=== PATIENT | female | born 1950 | race Caucasian/White ===

== ENCOUNTER 2020-08-04 06:32 | Day surgery (SDC) | payer BC ==
--- OUTSIDE RECORDS SUMMARY | 2020-08-04 06:00 | XMS ---
:[address] [facility] Support Name Relationship Address Phone [facility] Unavailable [facility] [place] [phone] [place] [address] [place] [address] KATHI BURRIS [address] [phone] [place] [address] Re-disclosure Warning The records that you are about to access may contain information from federally- assisted alcohol or drug abuse programs. If such information is present, then the following federally mandated warning applies: This information has been disclosed to you from records protected by federal confidentiality rules (42 CFR part 2). The federal rules prohibit you from making any further disclosure of this information unless further disclosure is expressly permitted by the written consent of the person to whom it pertains or as otherwise permitted by 42 CFR part 2. A general authorization for the release of medical or other information is NOT sufficient for this purpose. The Federal rules restrict any use of the information to criminally investigate or prosecute any alcohol or drug abuse patient.The records that you are about to access may contain highly sensitive health information, the redisclosure of which is protected by Article 27-F of the [facility] Public Health law. If you continue you may haveaccess to information: Regarding HIV / AIDS; Provided by facilities licensed or operated by the [facility] Office of Mental Health; or Provided by the [facility] Office for People With Developmental Disabilities. If such information is present, then the following [facility] mandated warning applies: This information has been disclosed to you from confidential records which are protected by state law. State law prohibits you from making any further disclosure of this information without the specific written consent of the person to whom it pertains, or as otherwise permitted by law. Any unauthorized further disclosure in violation of state law may result in a fine or prison sentence or both. A general authorization for the release of medical or other information is NOT sufficient authorization for further disclosure. Insurance Providers Payer name Policy type Policy ID Covered Covered libertarian's Policy P alexia / Coverage libertarian ID relationship to [employer] ormation type sauceda BC PPO [id number] OT [id number] BC PPO [id number] OT [id number] ECHO [id number] HEALTHCARE PPO BC PPO [id number] OT [id number] Results ID Date Data Source [id number] 07/31/2020 08:36:00 AM EDT [facility] Name Value Range Interpretation Description Data Sup porting Code Source(s) Document(s ) SARS [facility] coronavirus 2 RNA This lab was ordered by HANS MANDUJANO and reported by [facility]. ID Date Data Source [id number] 03/17/2020 01:25:00 PM EDT [facility] Name Value Range Interpretation Description Data Sup porting Code Source(s) Document(s ) SARS [facility] CORONAVIRUS 2 RNA This lab was ordered by HANS SUAREZ and reported by [facility]. Procedure
[2020-08-04] MEDS: CELECOXIB 200 MG CAPSULE PO ONE ×2 (06:50→15:57)
[2020-08-04] MEDS ORDERED: BUPIVACAINE HCL/PF 0.5% (5 MG/ML) 30 ML VIAL IJ ONE (06:56)
[2020-08-04] MEDS ORDERED: MIDAZOLAM HCL 2 MG/2 ML SINGLE DOSE VIAL ONE (06:56)
[2020-08-04] MEDS ORDERED: ceFAZolin SODIUM 1 GM VIAL ONE ×2 (07:00→07:06)
[2020-08-04] MEDS ORDERED: PROPOFOL 20 ML ONE ×3 (07:00)
[2020-08-04] MEDS ORDERED: LIDOCAINE HCL/PF 2% SDV 5ML VIAL ONE (07:00)
[2020-08-04] MEDS ORDERED: ePHEDrine SULFATE 50 MG/1 ML AMPULE ONE (07:02)
[2020-08-04 07:04] VITALS: BMI 22.7
[2020-08-04] MEDS ORDERED: SUCCINYLCHOLINE CHLORIDE 200 MG/10 ML SYRINGE ONE ×3 (07:05→08:08)
[2020-08-04] MEDS ORDERED: EPHEDRINE SULFATE/0.9% NACL/PF 50 MG/10 ML SYRINGE NR ONE (07:05)
[2020-08-04] MEDS ORDERED: MAG HYDROX/AL HYDROX/SIMETH 30 ML UNIT-DOSE CUP PO PRN (07:57)
[2020-08-04] MEDS ORDERED: ONDANSETRON 4 MG/2 ML VIAL IVPUSH PRN ×2 (07:57→09:20)
[2020-08-04] MEDS ORDERED: ACETAMINOPHEN INJECTION 100 ML IVPB ONE (07:58)
--- NOTE | 2020-08-04 07:59 | HP ---
Satellite [facility] - Chief Complaint Chief Complaint: right knee pain - Past Medical History Allergies/Adverse Reactions: Allergies Allergy/AdvReac Type Severity Reaction Status Date / Time No Known Drug Allergies Allergy Verified 07/31/20 15:41 Gastrointestinal: Yes: GERD ENT: Yes: Other (hx of throat canecr , s/p surgery and radiation.) - Current Medications Current Medications: Home Medications Medication Instructions Recorded Cholecalciferol (Vitamin D3) 400 unit PO DAILY 01/22/13 [Vitamin D -] Cyanocobalamin [Vitamin B12 -] 100 mcg PO DAILY 01/22/13 Levothyroxine [Synthroid -] 125 mcg PO DAILY 03/17/20 Satellite Physical Exam - Physical Examination Vital Signs: Vital Signs Period Temp Pulse Resp BP Sys/Logan Pulse Ox Last 24 Hr 97.9 F 69 16 115/69 99 General Appearance: Well Nourished, Well Developed, Alert & Oriented x3 ENT: Clear Lung: Normal air movement Extremities: Other (right knee- +swelling, + ttp medially, decr rom, nvi, xrays show grade 4 medial compartment djd) Neurological: Intact, Alert, Oriented Satellite Impression/Plan - Impression/Plan Impression: right knee medial djd Operative Procedure: right medial ruben ukr Date to be Performed: 08/04/20
[2020-08-04] MEDS ORDERED: TRANEXAMIC ACID 1000 MG/10 ML VIAL IVPUSH ONE (08:00)
[2020-08-04] MEDS ORDERED: CEFAZOLIN 2 GM in DEXTROSE 5%-WATER - 50 ML IVPB ONE (08:00)
[2020-08-04] MEDS ORDERED: LACTATED RINGERS SOLUTION 1,000 ML IV SCH (08:00)
[2020-08-04] MEDS ORDERED: TRANEXAMIC ACID 1000 MG/10 ML VIAL ONE (08:32)
[2020-08-04] MEDS ORDERED: BUPIVICAINE 0.25%/MORPH PF/KETOROLAC - 51ML DISP.SYRINGE IA ONE ×3 (09:00→09:22)
--- NOTE | 2020-08-04 09:34 | OP ---
Operative Note - Note: Operative Date: 08/04/20 (zaida) Pre-Operative Diagnosis: right knee medial djd Operation: right medial ruben ukr Post-Operative Diagnosis: Same as Pre-op Surgeon: Keven Major Senior Water/Wastewater Engineer: Yuriy Bob) Anesthesiologist/BAIL BONDSMAN: Elicia Aggarwal Anesthesia: Spinal, Local Specimens Removed: bone fragments Estimated Blood Loss (mls): 50
--- OUTSIDE RECORDS SUMMARY | 2020-08-04 13:23 | XMS ---
:1950 Author Organization [facility] Support Name Relationship Address Phone [facility] Unavailable [facility] [place] [address] [facility] [place] [address] KATHI BURRIS [address] [place] [address] Re-disclosure Warning The records that you are [...] is protected by Article 27-F of the [facility] Public Health law. If you continue you may haveaccess to information: Regarding HIV / AIDS; Provided by facilities licensed or operated by the [facility] Office of Mental Health; or Provided by the [facility] Office for People With Developmental Disabilities. If such information is present, then the following [facility] mandated warning applies: This information has been [...] law may result in a fine or nursing home sentence or both. A general authorization for the release of medical or other information is NOT sufficient authorization for further disclosure. Insurance Providers Payer name Policy type Policy ID Covered Covered libertarian's Policy P alexia / Coverage libertarian ID relationship to [employer] ormation type sauceda BC PPO [id number] OT [id number] BC PPO [id number] OT [id number] [place] [id number] HEALTHCARE PPO BC PPO [id number] OT [id number] Results ID Date Data Source [id number] 07/31/2020 08:36:00 AM EDT [facility] Name Value Range Interpretation Description Data Sup porting Code Source(s) Document(s ) SARS [facility] coronavirus 2 RNA This lab was ordered by HANS MANDUJANO and reported by [facility]. ID Date Data Source [id number] 03/17/2020 01:25:00 PM EDT [facility] Name Value Range Interpretation Description Data Sup porting Code Source(s) Document(s ) SARS [facility] CORONAVIRUS 2 RNA This lab was ordered by HANS SUAREZ and reported by [facility]. Procedure
[2020-08-04] MEDS: ACETAMINOPHEN 325 MG TABLET (FP) PO SCH ×2 (13:40→18:09)
[2020-08-04] MEDS: oxyCODONE HCL 5 MG TABLET PO PRN ×2 (13:41→20:28)
--- NOTE | 2020-08-04 14:44 | OP ---
DATE OF OPERATION: 08/04/2020 PREOPERATIVE DIAGNOSIS: Degenerative joint disease, right knee. POSTOPERATIVE DIAGNOSIS: Degenerative joint disease, right knee. PROCEDURE: Right medial unicompartmental knee replacement with robotic-assisted navigation (MAKOplasty). SURGICAL ATTENDING: Keven Mjaor MD INVASIVE MANAGER: BRYON Foreman SECOND MEDIUM CYCLE SALESPERSON: Zen Monte MD ANESTHESIA: Regional and spinal. CLOSURE: Medial unicompartmental LEE ANN components with a 4 femur, 4 tibia, and an 8 polyethylene; No. 1 Vicryl, fascia; 0 and 2-0, subcutaneous; 3-0 Monocryl subcuticular with skin glue; 4-0 undyed Vicryl for pin sites. ESTIMATED BLOOD LOSS: Less than 100 mL. COMPLICATIONS: None. CONDITION: To recovery in stable condition. DESCRIPTION OF OPERATIVE PROCEDURE: Patient was taken to the operating room on August 04, 2020. Spinal and regional anesthesia was administered by the anesthesiologist. IV Kefzol and TXA were administered prophylactically prior to the case. A well-padded pneumatic tourniquet was placed on the right proximal thigh. The right lower extremity was prepped and draped in the usual sterile fashion. A 6- to 8-cm longitudinal incision over the medial side of the patella from mid patella to the tibial tubercle was incised and was deepened using Bovie cautery. An arthrotomy was then made just medial to the patellar tendon and the patella. Subperiosteal dissection was done on the anteromedial proximal tibia all the way back to the MCL. Partial fat pad excision was performed, exposing the medial compartment. Checkpoint was malleable at both the femur and the tibia. Using 2 stab incisions in the femur 1 handbreadth above the patella on the femur and 2 stab incisions 1 handbreadth below the tibial tubercle on the tibia, 2 threaded pins were drilled in parallel fashion from anterior to posterior, going through the proximal cortex and engaging the 2nd but not through the 2nd cortex. To these threaded pins were fastened navigation rays, 1 on the femur and 1 on the tibia. The knee was then registered with the navigation device with the center of the rotation of the hip, medial and lateral malleoli, and multiple points both on the femur and on the tibia. Excellent registration of less than 0.5 mm was obtained on both to ensure adequate registration. The navigation device ensured us to "pop the bubbles" both on the femur and the tibia and that was performed and passed registration. The knee was then thoroughly inspected to remove all osteophytes both on the femur and the tibia. Also, osteophytes on the trochlea and on the surface of the patella were removed as well. The knee was then stressed with valgus stress at 0, 30, 60, 90, and 120 degrees of flexion. This propagated a looseness/tightness graft. The virtual positions of the components were then optimized to ensure an excellent graft. The tracking also was optimized by manipulating the virtual position to ensure that the femoral component articulated with the central portion of the tibial component. The robot was then brought into the field and was registered. The robot was used to bur the bone on both the femur and the tibia as to the specifications of the components. The trial components were then applied on both the femur and the tibia with an appropriate polyethylene insert. The knee was taken through a range of motion and found to have full extension, full flexion, with excellent stability. Stressing the graft revealed an excellent looseness/tightness graft with the trial components in place. The trial components were removed. The knee was thoroughly irrigated with a copious amount of antibiotic irrigation. The real components were then cemented in using modern generation cement techniques with antibiotic cement and pressurization. After the cement was hardened, the knee was thoroughly inspected to remove out all excess cement. The real polyethylene insert was then clipped into place. Range of motion and stability were again assessed to be as they were with the trials. At this time, the pins and the checkpoints were removed. The knee was again thoroughly irrigated. The arthrotomy was closed with No. 1 Vicryl, 0 and 2-0 subcutaneous, and 3-0 Monocryl subcuticular with skin glue for the skin, 4-0 undyed Vicryl for the pin sites. Sterile pressure dressing was placed over the knee. Patient awakened from anesthesia and transferred to recovery in stable condition. No complications. Estimated blood loss negligible. X-rays postoperatively revealed excellent position of the components. Gautam [id number]
[2020-08-04] MEDS: CEFAZOLIN 2 GM/D5W 2 GM/50 ML ML IVPB SCH ×2 (15:21→23:37)
[2020-08-04] MEDS ORDERED: OXYMETAZOLINE 0.05% NASAL SOLUTION 15 ML BOTTLE NS PRN (15:31)
[2020-08-04] MEDS: SENNOSIDES/DOCUSATE COMBO (SENNA PLUS) TABLET (UD) PO SCH ×2 (15:57→22:38)
[2020-08-04] MEDS: PANTOPRAZOLE 40 MG TABLET PO SCH (15:58)
[2020-08-04] MEDS: MULTIVITAMINS (DAILY MVI) TABLET (FP) PO SCH (15:58)
[2020-08-05] MEDS: ACETAMINOPHEN 325 MG TABLET (FP) PO SCH ×3 (00:54→12:40)
[2020-08-05] MEDS: oxyCODONE HCL 5 MG TABLET PO PRN ×3 (00:54→12:41)
[2020-08-05] MEDS ORDERED: LEVOTHYROXINE NA 125 MCG TABLET (FP) PO SCH (07:00)
[2020-08-05] MEDS ORDERED: ASPIRIN 325 MG TABLET PO SCH (08:00)
[2020-08-05 08:52] VITALS: PULSE 66
[2020-08-05] MEDS: MULTIVITAMINS (DAILY MVI) TABLET (FP) PO SCH (09:17)
[2020-08-05] MEDS: SENNOSIDES/DOCUSATE COMBO (SENNA PLUS) TABLET (UD) PO SCH (09:17)
[2020-08-05] MEDS: PANTOPRAZOLE 40 MG TABLET PO SCH (09:17)
--- NOTE | 2020-08-05 10:15 | PN ---
Progress Note (short form) - Note Progress Note: Anesthesia postop note 70 y/o F s/p spinal anesthesia/ nerve block for ruben knee replavement POD#1, vss, aaox3, elias well controlled, undergoing PT, no complaints. No anesthesia complications.
--- NOTE | 2020-08-05 11:23 | PN ---
Progress Note (short form) - Note Progress Note: Ortho Pt seen and examined s/p right medial ruben ukr pod #1 Selected Entries 08/05/20 08:51 Temperature 98.8 F Pulse Rate 66 Respiratory 17 Rate Blood Pressure 110/55 L dressing c/d/i, rom 0-70, calf soft, nt nvi a/p PT dvt ppx pain control d/c home today f/u in 1 week
--- NOTE | 2020-08-05 11:25 | DS ---
Physical Examination Vital Signs: Vital Signs Temperature 98.8 F 08/05/20 08:51 Pulse Rate 66 08/05/20 08:51 Respiratory Rate 17 08/05/20 08:51 Blood Pressure 110/55 L 08/05/20 08:51 O2 Sat by Pulse Oximetry (%) 97 08/05/20 08:51 Discharge Summary Problems reviewed: Yes Reason For Visit: RIGHT MEDIAL KNEE RUBEN Procedures: Principal: right medial ruben ukr Hospital Course: admitted for elective right medial ruben ukr, post-op per protocol, stable for d/c Condition: Good - Instructions Diet, Activity, Other Instructions: Post-op Instructions-Partial Knee Replacement Call the office for a follow-up appointment in 1 week - [phone] Aspirin 325mg daily for 6 weeks. Pain medication was sent into your pharmacy. Apply Graduated Compression Stockings (TEDs) to both lower extremities- remove daily for hygiene ONLY Apply Sequential Compression Device (SCDs) to both Lower extremities remove for PT and hygiene ONLY Apply cold packs to affected area for 15 minutes every 2 hours. Physical Therapist will come to your home for the first 5 days. You will be set up with outpatient PT at your first post-operative visit. Patient may ambulate as tolerated-encourage self care (at least every 2-3 hours while awake) with walker or cane Maintain Aquacel (waterproof) dressing to operative wound (will be removed by surgeon at first office visit) Shower with Aquacel dressing in place-if Aquacel integrity compromised, remove and apply dry sterile dressing and notify Orthopedist. DO NOT SHOWER unless Orthopedists approves without Aquacel dressing CONTACT THE OFFICE FOR ANY CHANGE IN YOUR CONDITION (for example-fever greater than 102 degrees, excessive bleeding from operative site, purulent drainage, severe swelling or pain) GO TO THE EMERGENCY ROOM IF THERE IS A MEDICAL EMERGENCY Knee Precautions: * Keep a rolled towel under affected heel while in bed or chair (to keep knee in extension) * Keep affected leg elevated except during mealtimes * DO NOT PLACE PILLOW UNDER AFFECTED KNEE * If you have any questions, please do not hesitate to call the office - [phone]. Referrals: Zen Monte MD [Staff Physician] - Keven Major MD [Staff Physician] - Disposition: VNS/HOME HEALTH CARE - Home Medications Comprehensive Discharge Medication List: Ambulatory Orders Cholecalciferol (Vitamin D3) [Vitamin D -] 400 unit PO DAILY 01/22/13 Cyanocobalamin [Vitamin B12 -] 100 mcg PO DAILY 01/22/13 Levothyroxine [Synthroid -] 125 mcg PO DAILY 03/17/20 Aspirin [ASA -] 325 mg PO DAILY@0800 tablet 08/04/20 Oxycodone HCl/Acetaminophen [Percocet 5-325 mg Tablet -] 1 - 2 tab PO Q6H #50 tab MDD 8 08/04/20
[2020-08-05 14:08] VITALS: BP 108/57; TEMP 98.6
== END 2020-08-05 15:10 | disposition home health service (06) ==
LOC: FASUSAT 06:32 → FM/S 06:32 → FASUSAT 08-05 15:10
PROVIDERS: ATTEND Orthopaedic Surgery
PROC: 8E0YXBZ Computer Assisted Procedure of Lower Extremity (ICD-10-PCS; 2020-08-04)
PROC: 8E0Y0CZ Robotic Assisted Procedure of Lower Extremity, Open Approach (ICD-10-PCS; 2020-08-04)
PROC: 0SRC0L9 Replacement of Right Knee Joint with Medial Unicondylar Synthetic Substitute, Cemented, Open Approach (ICD-10-PCS; principal; 2020-08-04 08:24)
DX: M17.11 Unilateral primary osteoarthritis, right knee (principal)
CPT/HCPCS: 20985; 27446; C1776; S2900; 73560-TC-RT-FY; 94760; 97010-GP; 97116-GP; 97162-GP; J0131

== ENCOUNTER 2020-10-02 07:28 | Emergency (ER) | payer BC | END 2020-10-02 09:53 | disposition home or self-care (01) | LOC: JVIRT 07:28 | DX: J34.89 Other specified disorders of nose and nasal sinuses (principal); Z03.818 Encounter for observation for suspected exposure to other biological agents ruled out | CPT/HCPCS: C9803; Q3014-GT; U0003 ==

== ENCOUNTER 2022-05-19 11:49 | Emergency (ER) | payer OTHER, BC ==
[2022-05-19 12:23] VITALS: BMI 21.4
[2022-05-19] MEDS ORDERED: ACETAMINOPHEN 1000 MG/100 ML BAG IVPB ONE (12:43)
[2022-05-19] MEDS ORDERED: BEBTELOVIMAB (EUA) 175 MG/2 ML VIAL IVPUSH ONE (12:43)
[2022-05-19] MEDS ORDERED: SODIUM CHLORIDE 0.9% 500 ML INFUS.BAG IV ONE (12:44)
[2022-05-19] MEDS ORDERED: ACETAMINOPHEN INJECTION 100 ML IVPB ONE (13:58)
[2022-05-19 15:27] VITALS: BP 132/84; PULSE 76; TEMP 98.6
== END 2022-05-19 15:15 | disposition home or self-care (01) ==
LOC: JER 11:49
PROC: 3E033NZ Introduction of Analgesics, Hypnotics, Sedatives into Peripheral Vein, Percutaneous Approach (ICD-10-PCS; principal; 2022-05-19)
PROC: 3E03329 Introduction of Other Anti-infective into Peripheral Vein, Percutaneous Approach (ICD-10-PCS; 2022-05-19)
DX: U07.1 COVID-19 (principal); R05.1 Acute cough
CPT/HCPCS: 99284-25; M0222; Q0222

== ENCOUNTER 2023-07-13 11:16 | Emergency (ER) | payer OTHER, BC ==
[2023-07-13 11:25] VITALS: BMI 21.9
[2023-07-13] MEDS ORDERED: predniSONE 20 MG TABLET (UD) PO ONE (11:53)
[2023-07-13] MEDS ORDERED: predniSONE 20 MG TABLET (UD) ONE (11:55)
[2023-07-13 12:44] LABS: BASO % 0.6 % (0-2.0); EOS % 2.9 % (0-4.5); HEMOGLOBIN 12.5 GM/dL (10.7-15.3); MCH 31.3 pg (25.7-33.7); MCHC 32.8 g/dl (32.0-36.0); MEAN CELL VOLUME 95.3 fl (80-96); MEAN PLT VOLUME 6.8 fl (7.5-11.1); MONO % 16.3 % (3.8-10.2); NEUT % 61.2 % (42.8-82.8); PLATELET COUNT 293 10^3/uL (134-434); RBC 3.99 M/mm3 (3.60-5.2); RDW 14.7 % (11.6-15.6); WHITE BLOOD COUNT 3.9 K/mm3 (4.0-10.0)
[2023-07-13 13:32] LABS: POTASSIUM 4.8 mmol/L (3.5-5.1)
[2023-07-13 13:33] LABS: CALCIUM 8.9 mg/dL (8.5-10.1)
[2023-07-13 13:34] LABS: ALBUMIN 3.6 g/dl (3.4-5.0); BLOOD UREA NITROGEN 13.8 mg/dL (7-18)
[2023-07-13 13:37] LABS: CREATININE 0.9 mg/dL (0.55-1.3)
[2023-07-13 13:38] LABS: TOT PROT 6.9 g/dl (6.4-8.2)
[2023-07-13 13:39] LABS: BILIRUBIN,TOTAL 0.4 mg/dL (0.2-1)
[2023-07-13 13:53] VITALS: BP 149/91; PULSE 66; RESP 20; TEMP 99
== END 2023-07-13 14:00 | disposition home or self-care (01) ==
LOC: JER 11:16
DX: T63.444A Toxic effect of venom of bees, undetermined, initial encounter (principal); R22.0 Localized swelling, mass and lump, head; H05.222 Edema of left orbit; Z85.89 Personal history of malignant neoplasm of other organs and systems
CPT/HCPCS: 36415; 70450-TC; 80053; 85025; 99284-25

== ENCOUNTER 2023-10-23 04:34 | Day surgery (SDC) | payer OTHER, BC ==
[2023-10-19 14:17] VITALS: BMI 21.9
[2023-10-23 06:47] VITALS: RESP 20
[2023-10-23] MEDS ORDERED: FENTANYL CITRATE/PF 50 MCG/ML VIAL ONE (07:00)
[2023-10-23] MEDS ORDERED: MIDAZOLAM HCL 2 MG/2 ML SINGLE DOSE VIAL ONE (07:00)
[2023-10-23] MEDS ORDERED: methylPREDNISolone ACET (DEPO) 80 MG/1 ML VIAL ONE (07:37)
[2023-10-23] MEDS ORDERED: BUPIVACAINE HCL/PF 0.25% (2.5MG/ML) 10 ML VIAL ONE (07:37)
[2023-10-23] MEDS ORDERED: LIDOCAINE HCL/PF 1% SDV 5ML VIAL ONE (07:51)
[2023-10-23] MEDS ORDERED: methylPREDNISolone ACET (DEPO) 80 MG/1 ML VIAL IM ONE (07:52)
[2023-10-23] MEDS ORDERED: LIDOCAINE HCL 1%, 10 MG/ML (20ML VIAL) INF ONE ×2 (07:52)
[2023-10-23] MEDS ORDERED: BUPIVACAINE HCL/PF 0.25% (2.5MG/ML) 10 ML VIAL IJ ONE ×2 (07:52)
[2023-10-23 08:11] VITALS: PULSE 64
[2023-10-23 09:41] VITALS: BP 138/85; TEMP 98.6
== END 2023-10-23 09:53 | disposition home or self-care (01) ==
LOC: JASU-SURG 04:34
PROVIDERS: ATTEND Neurological Surgery
PROC: 3E0T33Z Introduction of Anti-inflammatory into Peripheral Nerves and Plexi, Percutaneous Approach (ICD-10-PCS; 2023-10-23)
PROC: 3E0T3BZ Introduction of Anesthetic Agent into Peripheral Nerves and Plexi, Percutaneous Approach (ICD-10-PCS; principal; 2023-10-23 07:30)
DX: M43.12 Spondylolisthesis, cervical region (principal); M47.812 Spondylosis without myelopathy or radiculopathy, cervical region
CPT/HCPCS: 76000-TC-FY

== ENCOUNTER 2025-07-31 09:14 | Inpatient (IN) | payer OTHER, BC ==
[2025-07-31 10:32] LABS: MCHC 32.6 g/dl (32.2-35.5); MEAN CELL VOLUME 97.4 fl (79.4-94.8); MEAN PLT VOLUME 8.3 fl (9.4-12.3); RDW 16.1 % (12.4-16.6)
[2025-07-31 10:55] LABS: INR 0.94 (0.83-1.09); PROTHROMBIN TIME (PATIENT) 10.3 SEC (9.7-13.0)
[2025-07-31 10:58] LABS: GLUCOSE,RANDOM 84.0 mg/dL (74-106)
[2025-07-31 10:59] LABS: TOT PROT 6.1 g/dl (6.4-8.2)
[2025-07-31 11:00] LABS: CO2 25.0 mmol/L (21-32)
[2025-07-31 11:02] LABS: ALK PHOS 50.0 U/L (40-150)
[2025-07-31 11:04] LABS: SGOT/AST 22.0 U/L (5-34); SGPT/ALT 12.0 U/L (0-55)
[2025-07-31 11:05] LABS: CREATININE 0.8 mg/dL (0.55-1.3)
[2025-07-31 14:18] LABS: IRON SERUM 28.0 ug/dL (50-175)
[2025-07-31] MEDS: PEG 3350/NA SULF BICARB CL/KCL 4000 ML SOLN.RECON PO ONE (16:32)
[2025-07-31 16:37] LABS: MCHC 32.5 g/dl (32.2-35.5); MEAN CELL VOLUME 95.4 fl (79.4-94.8); MEAN PLT VOLUME 8.4 fl (9.4-12.3); RDW 16.7 % (12.4-16.6)
[2025-07-31 17:24] VITALS: BMI 24.7
[2025-07-31] MEDS: BISACODYL 5 MG TABLET.DR (FP) PO ONE (19:52)
[2025-08-01] MEDS: LEVOTHYROXINE NA 125 MCG TABLET (FP) PO SCH (06:17)
[2025-08-01 06:48] LABS: MCHC 33.2 g/dl (32.2-35.5); MEAN CELL VOLUME 93.5 fl (79.4-94.8); MEAN PLT VOLUME 8.4 fl (9.4-12.3); RDW 18.2 % (12.4-16.6)
[2025-08-01 07:13] LABS: INR 0.98 (0.83-1.09); PROTHROMBIN TIME (PATIENT) 10.7 SEC (9.7-13.0)
[2025-08-01 07:19] LABS: GLUCOSE,RANDOM 87.0 mg/dL (74-106)
[2025-08-01 07:20] LABS: TOT PROT 6.3 g/dl (6.4-8.2)
[2025-08-01 07:21] LABS: CO2 24.0 mmol/L (21-32)
[2025-08-01 07:22] LABS: ALK PHOS 51.0 U/L (40-150)
[2025-08-01 07:25] LABS: CREATININE 0.79 mg/dL (0.55-1.3); SGOT/AST 24.0 U/L (5-34); SGPT/ALT 13.0 U/L (0-55)
[2025-08-01] MEDS: EZETIMIBE 10 MG TABLET (FP) PO SCH (10:30)
[2025-08-01] MEDS: PANTOPRAZOLE 40 MG TABLET PO SCH (10:30)
[2025-08-01 15:13] VITALS: BP 129/76; PULSE 60; RESP 18; TEMP 97.5
== END 2025-08-01 15:27 | disposition home or self-care (01) | DRG 378 ==
LOC: JER 09:14 → JERBED 11:16 → J4W 14:35
PROVIDERS: ADMIT Student in an Organized Health Care Education/Training Program; ATTEND Internal Medicine
PROC: 30233N1 Transfusion of Nonautologous Red Blood Cells into Peripheral Vein, Percutaneous Approach (ICD-10-PCS; 2025-07-31)
PROC: 0DB78ZX Excision of Stomach, Pylorus, Via Natural or Artificial Opening Endoscopic, Diagnostic (ICD-10-PCS; 2025-08-01)
PROC: 0DJD8ZZ Inspection of Lower Intestinal Tract, Via Natural or Artificial Opening Endoscopic (ICD-10-PCS; 2025-08-01)
PROC: 0DB98ZX Excision of Duodenum, Via Natural or Artificial Opening Endoscopic, Diagnostic (ICD-10-PCS; principal; 2025-08-01 11:00)
DX: K57.31 Diverticulosis of large intestine without perforation or abscess with bleeding (principal); D62 Acute posthemorrhagic anemia; K62.5 Hemorrhage of anus and rectum; E03.9 Hypothyroidism, unspecified; J45.909 Unspecified asthma, uncomplicated; E78.5 Hyperlipidemia, unspecified; K64.8 Other hemorrhoids; K29.50 Unspecified chronic gastritis without bleeding; K21.9 Gastro-esophageal reflux disease without esophagitis; M50.30 Other cervical disc degeneration, unspecified cervical region; M51.369 Other intervertebral disc degeneration, lumbar region without mention of lumbar back pain or lower extremity pain; Z96.653 Presence of artificial knee joint, bilateral; Z85.118 Personal history of other malignant neoplasm of bronchus and lung; Z85.41 Personal history of malignant neoplasm of cervix uteri
CPT/HCPCS: 36415; 36430; 71045-TC-FY; 80053; 81003; 82607; 82728; 82746; 83540; 83550; 83735; 84100; 84484; 85025; 85027; 85610; 85730; 86803; 86850; 86900; 86901; 86922; 87086; 87389; 88305-TC; 88342-TC; 93005; 93010; 93306-TC; 99284-25; 99285-25; P9058